=== PATIENT | female | born 1955 | race Caucasian/White ===

== ENCOUNTER → 2018-08-15 | Outpatient (CLI) | payer OTHER ==
[2018-08-15 13:03] LABS: CREATININE 1.1 mg/dL (0.6-1.0)
== END ==
LOC: CAT 11:42 → LABMALL 11:42
PROVIDERS: Nurse Practitioner
DX: K44.9 Diaphragmatic hernia without obstruction or gangrene (principal); D17.79 Benign lipomatous neoplasm of other sites; K76.9 Liver disease, unspecified; K76.89 Other specified diseases of liver; N20.0 Calculus of kidney; N28.1 Cyst of kidney, acquired; M47.816 Spondylosis without myelopathy or radiculopathy, lumbar region; M48.061 Spinal stenosis, lumbar region without neurogenic claudication; Z88.5 Allergy status to narcotic agent; Z88.2 Allergy status to sulfonamides; Z90.49 Acquired absence of other specified parts of digestive tract

== ENCOUNTER → 2018-12-10 | Outpatient (CLI) | payer OTHER ==
--- NOTE | ~2018-12-10 | P ---
[facility] [place] [address] PROCEDURE REPORT Name: LUIS LUNA Room #: REG [facility]#: [id number] Admission: 12/10/18 ������������������ Attend Phys: Gil Gray MD Discharge: ������������������ Date of : 57 Report #: [id number] THIS REPORT FOR: //name// CC: Gil Saleh MD DATE OF SERVICE: 12/11/2018 CAPSULE ENDOSCOPY REPORT BRIEF HISTORY: The patient is a 63-year-old woman with recent findings of marked microcytic anemia. It is noted she had a colonoscopy and upper endoscopy for other reasons in 2017. She was referred for an M2 capsule study for further evaluation of her marked microcytic anemia. PREOPERATIVE DIAGNOSIS: Microcytic anemia. POSTOPERATIVE DIAGNOSES: Microcytic anemia with normal capsule study. MEDICATIONS: None. SPECIMEN: None. PROCEDURE: Small bowel M2 capsule study. FINDINGS: The patient presented to GI lab and swallowed the M2 capsule. Study was completed without difficulty. Images of the small bowel revealed normal mucosa. There is no evidence of bleeding lesion or potentially bleeding lesions. The small bowel mucosa was normal. The capsule was noted to pass into the colon. DISPOSITION: Capsule study completed without obvious bleeding site identified. It is noted on her previous endoscopy that she does have a fairly large hiatus hernia that may be a potential source of chronic blood loss. However, she should return to the office for followup to discuss findings of this study as well as consideration of further studies were repeated endoscopic studies as those studies were done prior to the onset of her anemia. ��������������������������������������������� ���������������������������������������� By: ��������������������������������������������� [id number] Gil Gray MD /nt
== END | disposition home or self-care (01) ==
LOC: GI 12-09 13:07
DX: D50.9 Iron deficiency anemia, unspecified (principal); Z98.890 Other specified postprocedural states; Z88.8 Allergy status to other drugs, medicaments and biological substances

== ENCOUNTER → 2018-12-24 | Outpatient (CLI) | payer OTHER ==
[~2018-12-24] MED LIST: AMLODIPINE BESY10 MG PO; PANTOPRAZOLE SO40 M1 PO; PHENTERMINE H37.5 MG PO; SYNTHROID125 MC1 PO; TRENTELIX PO; WELLBUTRIN SR150 MG PO
[2018-12-24 10:05] VITALS: BP 126/60
[2018-12-24 10:19] VITALS: BP 126/60
[2018-12-24 11:04] VITALS: BP 132/68
[2018-12-24 11:35] VITALS: BP 135/66
--- NOTE | 2018-12-24 12:35 | NUR ---
PT HERE FOR HER FIRST OF TWO INJECTAFER INFUSIONS FOR IRON DEFICIENCY ANEMIA. PT HAS NO PRIOR IRON INFUSION HISTORY. STATES STILL BEING WORKED UP TO FIND SOURCE OF LOW IRON. HAS BEEN FEELING TIRED, LOW ENERGY, SHORT OF AIR, LEGS ACHY. INJECTAFER INFUSED OVER 30 MINUTES. PT INITIALLY FINE WITH INFUSION THEN, WHEN COMPLETED, STATED SHE FELT WEIRD, STARTED ABOUT 10 MINUTES BEFORE THE COMPLETION OF THE INFUSION. ASKED TO DESCRIBE IN MORE DETAIL HOW SHE FELT AND SHE SAID A LITTLE COLD, NAUSEATED, TINGY. NOTIFIED DR. DOMINGUEZ PER NURSECHRIS. PO BENADRYL 25MG GIVEN AND PT ALLOWED TO LAY DOWN FOR A NAP. VSS THROUGHOUT. A LITTLE MORE THAN AN HOUR POST INFUSION PT DID REPORT FEELING BETTER, STILL NOT NORMAL. GAIT STEADY WHEN UP, NOT DIZZY, NO VISUAL CHANGES, NO RESPIRATORY OR SKIN REACTIONS NOTED. PT DISMISSED TO NANCY CRABTREE NP, VISIT (HAD BEEN PREVIOUSLY SCHEDULED). AT THIS TIME, SCHEDULED TO RETURN HERE IN ONE FOR 2ND INFUSION.
== END ==
LOC: OPONC 09:11
DX: D50.8 Other iron deficiency anemias (principal); T45.4X5A Adverse effect of iron and its compounds, initial encounter
CPT/HCPCS: 95000

== ENCOUNTER → 2018-12-31 | Outpatient (CLI) | payer OTHER ==
[2018-12-31 08:40] VITALS: BP 128/79
--- NOTE | 2018-12-31 09:05 | NUR ---
IN FOR 2ND AND FINAL INJECTAFER INFUSION. REPORTS ACTUALLY FEELING A BIT STRONGER SINCE LAST WEEK THO STILL TIRED AND HAVING SOME EXERTIONAL DYSPNEA. STATES THE ODD FEELING SHE HAD WITH LAST INFUSION SLOWLY WORE OFF DURING THE DAY. TOOK HER OWN ORAL BENADRYL PREMED TODAY. INJECTAFER INFUSED OVER 30 MIN, WATCHED PT FOR 30+ MIN AFTER. VSS THROUGHOUT. STILL FELT A LITTLE ODD BUT NOT INTENSE LAST WEEK. FEELS STEADY AND STABLE AND ABLE TO DISMISS. PLANS TO GO TO WORK FROM HERE. DISMISSD IN STABLE CONDITION. WILL F/U FOR LABS WITH DR. DOMINGUEZ IN A COUPLE WEEKS.
[2018-12-31 09:24] VITALS: BP 132/72
[2018-12-31 09:55] VITALS: BP 142/76
== END ==
LOC: OPONC 02:29
DX: D50.8 Other iron deficiency anemias (principal); T45.4X5D Adverse effect of iron and its compounds, subsequent encounter
CPT/HCPCS: 95000